=== PATIENT | female | born 1995 | race Two or more races ===

== ENCOUNTER 2019-02-27 00:34 | Emergency (ER) | payer OTHER ==
[2019-02-27] MEDS ORDERED: IBUPROFEN 800 MG TABLET PO ONE (01:08)
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
[2019-02-27 01:43] VITALS: BP 141/83
== END 2019-02-27 02:12 | disposition home or self-care (01) ==
LOC: ER 00:34
DX: T22.00XA Burn of unspecified degree of shoulder and upper limb, except wrist and hand, unspecified site, initial encounter (principal); T24.002A Burn of unspecified degree of unspecified site of left lower limb, except ankle and foot, initial encounter; T24.001A Burn of unspecified degree of unspecified site of right lower limb, except ankle and foot, initial encounter; V49.40XA Driver injured in collision with unspecified motor vehicles in traffic accident, initial encounter; W22.11XA Striking against or struck by driver side automobile airbag, initial encounter
CPT/HCPCS: 99283